=== PATIENT | male | born 1995 | race Caucasian/White ===

== ENCOUNTER 2017-02-06 14:48 | Observation (INO) | payer OTHER ==
[~2017-02-06] VITALS: Ht 177.8 cm; Wt 100.0 kg
--- NOTE | ~2017-02-06 | OR ---
Unit #: [id number] #: [id number] Patient: DM BACH [id number] [address] [address] [id number] I MR#: [id number] NAME: DM BACH ROOM: 238 Date of Procedure: 02/06/2017 Admission Date: 02/06/2017 Surgeon: Mani Richard M.D. : 1995 Attending Physician: Mani Richard M.D. Primary Care Physician: Primary Care Physician No OPERATIVE REPORT PREOPERATIVE DIAGNOSIS Acute appendicitis. POSTOPERATIVE DIAGNOSIS Acute appendicitis. PROCEDURE PERFORMED Laparoscopic appendectomy. ANESTHESIA General endotracheal. COMPLICATIONS None. ESTIMATED BLOOD LOSS Minimal. DESCRIPTION OF PROCEDURE After the patient was prepped and draped in usual fashion, 1 cm infraumbilical incision was made. A Veress needle was passed. The peritoneal cavity was insufflated in the usual fashion. A 5-mm port was placed under direct vision and a lower midline 12-mm port and a right upper quadrant 5-mm port were placed. The cecum was identified and rotated medially. The appendix was quickly identified. This was pulled up into the anterior operating field. It was acutely inflamed and swollen. A window was dissected at the base of the appendix and the mesentery and the appendix was divided from the cecum using tissue ml. The mesentery was taken down with 2 firings of vascular ml and retrieved through the lower midline trocar site with an Endopouch. There was no bleeding from the mesentery. There have been no evidence of perforation or purulent fluid within the peritoneal cavity, so irrigation was not performed. Ports were removed under direct vision. There was no bleeding. NeoClose was used to close the fascia at the lower midline trocar site. Abdomen was desufflated. All wounds were infiltrated with 0.5% Marcaine with epinephrine. Skin closed with clips. Dressings applied. The patient was taken to the recovery room in good condition. Dictated by... Mani Richard M.D. Unit #: [id number] #: [id number] Patient: DM BACH SONI/therese TD: 02/07/2017 00:17 JOB #: [id number] OPERATIVE REPORT Page 1 of 1 X Mani Richard PROCEDURE OPERATIVE NOTE
--- NOTE | ~2017-02-06 | CT2 ---
[facility] A Service of [facility] & [facility] RADIOLOGY TEXT RESULTS PATIENT: DM BACH LOCATION: C2A 238- : [birth year] UNIT #: [id number] AGE: [address]: Mani Richard SEX: M ORDER DR: [id number] [facility] [address] [facility]. [place], [place] [address] [id number] MR#: [id number] Acc #: [id number] NAME: DM BACH : 1995 SEX: M STUDY DATE/TIME: 02/06/2017 17:28 UNIT: [facility] ROOM: 238 STUDY DESCRIPTION: CT Abd and Pelv W Cont Attending Physician: Mani Richard M.D. Ordering Physician: Virgen Dc P.A.-C. Primary Care Physician: No Primary Care Physician MEDICAL IMAGING REPORT This report is preliminary unless electronic signature is present EXAM CT abdomen and pelvis with IV contrast. HISTORY History is right abdomen and mid abdomen pain today. TECHNIQUE CT abdomen and pelvis was performed with IV contrast. This CT exam was performed with one or more of the following radiation dose reduction techniques: automatic exposure control, adjustment of mA and/or kV according to patient size, and iterative reconstruction. FINDINGS CT abdomen: The lung bases are clear. Mild diffuse fatty infiltration of the liver. No hepatic mass. No biliary dilatation. The gallbladder, spleen, pancreas, kidneys, and adrenal glands are normal. No bowel dilatation. CT pelvis: Moderate dilatation of the appendix measuring close to 14 mm in diameter, with periappendiceal stranding. Appendix is retrocecal in the right lower quadrant. There are several adjacent mildly prominent lymph nodes in the right lower quadrant. Findings are characteristic of acute appendicitis. No adjacent abscess. Minimal free fluid in the pelvis. No bowel dilatation. Urinary bladder is normal. IMPRESSION 1. Findings are characteristic of acute appendicitis. Appendix is retrocecal and is moderately dilated up to 14 mm in diameter when there is moderate adjacent periappendiceal stranding. No abscess. Small amount of free fluid in the pelvis. 2. Several mildly prominent lymph nodes in the right lower quadrant could be reactive or inflammatory. STS. [facility] A Service of [facility] & [facility] RADIOLOGY TEXT RESULTS PATIENT: DM BACH LOCATION: [place] [address] : [birth year] UNIT #: [id number] AGE: [address]: Mani Richard SEX: M ORDER DR: Dictated by... Olegario Hagen M.D. THIS IS AN ELECTRONICALLY VERIFIED REPORT Olegario Hagen M.D. at 02/07/2017 11:45 PM DFL/brooke TD: 02/07/2017 09:18 JOB #: [id number] MEDICAL IMAGING REPORT Page 1 of 1 COPY
--- NOTE | ~2017-02-06 | CO ---
Unit #: [id number] #: [id number] Patient: DM BACH [id number] [address] [place], [place] [address] [id number] I MR#: [id number] NAME: DM BACH ROOM: 238 Age: 21 Sex: M Admission Date: 02/06/2017 : 1995 Attending Physician: Mani Richard M.D. Primary Care Physician: Primary Care Physician No Consultation Date: 02/06/2017 CONSULTATION REPORT PRIMARY REASON FOR CONSULTATION Acute appendicitis. HISTORY OF PRESENT ILLNESS The patient is a 21-year-old gentleman, who earlier today developed acute onset of persistent moderately severe abdominal pain, that is sharp, stabbing in nature, started periumbilically, but quickly localized down to his right lower quadrant. He has had no nausea or vomiting. No fevers or chills. The pain is exacerbated by movement, relieved by nothing. He has not had any previous such symptoms. He has had anorexia as well. REVIEW OF SYSTEMS A 10-point review is performed. This is negative other than what was already listed in the history of present illness. PAST MEDICAL HISTORY He has no chronic medical illnesses. He had lung surgery as a child. SOCIAL HISTORY He is an occasional drinker. He has never smoked. He denies drug abuse. FAMILY HISTORY Noncontributory. PHYSICAL EXAMINATION GENERAL: He is alert, in some mild abdominal discomfort. VITAL SIGNS: Temperature is 98.9, pulse 100, respirations 20, blood pressure 124/86, he is 99% saturated on room air. HEENT: Pupils are equal and round. Extraocular motions are intact. NECK: Supple without adenopathy. HEART: Regular rate and rhythm. LUNGS: Clear to auscultation anteriorly. ABDOMEN: Soft. Tender in the right lower quadrant with voluntary guarding and mild rebound. No masses appreciable. He does have a positive Rovsing sign. EXTREMITIES: Negative for clubbing, cyanosis, or edema. NEUROLOGIC: Negative focal sensory or motor deficits. SKIN: Warm and dry. DIAGNOSTIC STUDIES LABORATORY RESULTS: Significant for white blood cell count of 11, hemoglobin and chemistries are within normal limits. UA is benign. IMAGING STUDIES: CT scan shows early acute appendicitis with no Unit #: [id number] #: [id number] Patient: DM BACH complicating features. ASSESSMENT AND PLAN The patient with acute appendicitis. I have discussed laparoscopic, possible open appendectomy with him. He is agreeable. This will be done tonight. Dictated by... Adrian Lawler/therese TD: 02/07/2017 03:30 JOB #: [id number] CONSULTATION REPORT Page 1 of 1 X Mani Richard CONSULTATION REPORT
[2017-02-06 15:19] LABS: BASOPHIL# 0.1 X10e3 (0-0.3); BASOPHIL% 0.5 % (0-2.5); EOSINOPHIL# 0.1 X10e3 (0-0.7); EOSINOPHIL% 1.1 % (0.0-7.0); HEMATOCRIT 44.5 % (38.0-50.0); HEMOGLOBIN 15.4 gm/dL (13.0-16.0); LYMPHOCYTE# 2.7 X10e3 (1.0-3.5); LYMPHOCYTE% 23.6 % (17.0-45.0); MEAN CELL VOLUME 80.5 FL (83-96); MEAN CORPUSCULAR HEMOGLOBIN 27.8 PG (28-34); MEAN CORPUSCULAR HGB CONC 34.5 g/dL (30-36); MEAN PLATELET VOLUME 7.4 FL (6.5-11.5); MONOCYTE# 0.9 X10e3 (0-1.0); MONOCYTE% 8.2 % (3.0-12.0); NEUTROPHIL# 7.5 X10e3 (1.5-7.1); NEUTROPHIL% 66.6 % (40-75); PLATELET COUNT 299 X10e3 (140-420); RED BLOOD COUNT 5.53 X10e (3.90-5.60); RED CELL DISTRIBUTION WIDTH 12.6 % (11.0-15.5); WHITE BLOOD COUNT 11.4 X10e3 (4.0-10.5)
[2017-02-06 15:52] LABS: DIFF IND NO
[2017-02-06 16:03] LABS: ALBUMIN SERUM 4.7 g/dL (3.5-5.0); BILIRUBIN, DIRECT 0.1 mg/dL (0.0-0.2); BILIRUBIN,INDIRECT 0.9 mg/dL (0.0-0.9); CREATININE SERUM 1.2 mg/dL (0.6-1.4); GLOM FILT RATE Estimated 84.7 mL/min (>60); PROTEIN TOTAL SERUM 7.8 g/dL (6.0-8.3)
[2017-02-06 16:16] LABS: URINE SOURCE CLEAN CATCH
[2017-02-06 16:22] LABS: URINE APPEARANCE CLEAR; URINE BILIRUBIN NEG (NEG); URINE BLOOD NEG (NEG); URINE COLOR YELLOW; URINE GLUCOSE NEG (NEG); URINE KETONE 1+ (NEG); URINE LEUKOCYTE ESTERASE NEG (NEG); URINE NITRATE NEG (NEG); URINE PROTEIN NEG (NEG); URINE SPECIFIC GRAVITY 1.018 (1.003-1.035)
[2017-02-06 16:28] LABS: CULTURE INDICATED? NO
[2017-02-06] MEDS ORDERED: NO MEDICATIONS (18:05)
[2017-02-07 05:16] LABS: HEMATOCRIT 40.7 % (38.0-50.0); HEMOGLOBIN 14.2 gm/dL (13.0-16.0); MEAN CELL VOLUME 80.7 FL (83-96); MEAN CORPUSCULAR HEMOGLOBIN 28.1 PG (28-34); MEAN CORPUSCULAR HGB CONC 34.8 g/dL (30-36); MEAN PLATELET VOLUME 7.4 FL (6.5-11.5); RED BLOOD COUNT 5.04 X10e (3.90-5.60); RED CELL DISTRIBUTION WIDTH 12.2 % (11.0-15.5); WHITE BLOOD COUNT 10.9 X10e3 (4.0-10.5)
[2017-02-07] MEDS ORDERED: LORTAB 7.5-3251 EACH PO (11:28)
== END 2017-02-07 16:14 | disposition home or self-care (01) ==
LOC: CED 14:48 → CFTX 14:48 → CEDOF 15:33 → CFTX 18:35 → CEDOF 18:35 → CFTX 18:42 → C2A 18:42 → CEDOF 18:42 → C2A 22:39
PROVIDERS: Surgery
DX: K35.3 Acute appendicitis with localized peritonitis (principal)
CPT/HCPCS: 74177; 80048; 80076; 81003; 83690; 85025; 85027; 88304; 96365; 96366; 96375; 96376; G0378; J0330; J1885; J2250; J2270; J2405; J2543; J2710; J3010; Q9967